=== PATIENT | female | born 1950 | race American Indian/Alaskan Native ===

== ENCOUNTER 2017-02-01 17:17 | Emergency (ER) | payer MEDICARE ==
[2017-02-01 18:41] LABS: Basophils % (Auto) 0.3 % (0.0-1.8); Eosinophils % (Auto) 0.2 % (0.0-4.3); Hematocrit 38.4 % (30.3-42.9); Hemoglobin 12.6 gm/dl (10.1-14.3); Mean Corpuscular HGB Conc 33 % (30-34); Mean Corpuscular Hemoglobin 30 pg (28-32); Mean Corpuscular Volume 90 fl (79-97); Platelet Count 184 K/mm3 (140-440); Red Blood Count 4.29 M/mm3 (3.65-5.03); Red Cell Distribution Width 14.8 % (13.2-15.2); White Blood Count 12.9 K/mm3 (4.5-11.0)
[2017-02-01 18:52] LABS: Albumin 4.3 g/dL (3.9-5); Albumin/Globulin Ratio 1.4 %; BUN/Creatinine Ratio 14.66; Bilirubin,Total 0.3 mg/dL (0.1-1.2); Chloride 102.9 mmol/L (98-107); Potassium 4.3 mmol/L (3.6-5.0); Total Protein 7.3 g/dL (6.3-8.2)
[2017-02-01] MEDS ORDERED: REGLAN IV ONE (21:05)
[2017-02-01] MEDS ORDERED: FLEXERIL PO ONE (21:06)
[2017-02-01] MEDS ORDERED: NACL 0.9% 1000 ML 1,000 ML IV ONE (21:06)
[2017-02-01] MEDS ORDERED: NACL ONE (21:25)
[2017-02-01 21:34] LABS: INR 1.01 (0.87-1.13)
[2017-02-01 22:32] LABS: Bacteria,Urine 1+ /HPF (Negative); Bilirubin,Urine NEG (Negative); Blood,Urine NEG (Negative); Ketones,Urine NEG (Negative); Leukocyte Esterase,Urine NEG (Negative); Mucus,Urine FEW /HPF; Nitrite,Urine NEG (Negative); Protein,Urine <15 mg/dL mg/dL (Negative); RBC,Urine < 1.0 /HPF (0.0-6.0); Urobilinogen,Urine < 2.0 mg/dL (<2.0)
[2017-02-01] MEDS ORDERED: ANTIVERT PO ONE (23:36)
--- NOTE | 2017-02-01 23:41 | Emergency Department Report ---
ED Dizziness HPI - General Chief Complaint: Weakness Stated Complaint: SZ Time Seen by Provider: 02/01/17 21:04 Source: patient, EMS Mode of arrival: Wheelchair Limitations: Physical Limitation - History of Present Illness Initial Comments: 66 yo female with past medical history hypertension, seizure, foot drop presents to the ED complaining of lightheadedness. [place] feeling the world was spinning. She did not have a loss of consciousness, she had no focal neuro deficits. She states on the way to the ER she developed a headache that was pounding in nature, she states headache was not the worse headache of her life and consistent with previous headaches in the past. Pertinent negatives: fever/chills, change in vision, neck stiffness, neck pain, chest pain, nausea/vomiting/diarrhea. MD Complaint: lightheadedness -: Gradual Timing: sudden onset Description: "room spinning" History of Same: No History of Trauma: No Severity: moderate Improves With: nothing Worsens With: nothing Associated Symptoms: denies: ataxia, chest pain, confusion, diaphoresis, fever/ chills, loss of appetite, seizure, shortness of breath, syncope, weakness - Related Data Previous Rx's Medication Instructions Recorded Last Taken Type Atenolol [Tenormin] 50 mg PO DAILY #30 tablet 05/16/15 Unknown Rx Docusate Sodium [Colace CAP] 100 mg PO BID #20 capsule 05/16/15 Unknown Rx Gabapentin [Neurontin] 300 mg PO Q8HR #90 capsule 05/16/15 Unknown Rx Indomethacin [Indocin] 25 mg PO BID #20 capsule 05/16/15 Unknown Rx Levothyroxine [Synthroid] 25 mcg PO QAM #30 tablet 05/16/15 Unknown Rx Oxycodone HCl [oxyCODONE TAB] 10 mg PO Q6H PRN #20 tablet 05/16/15 Unknown Rx PARoxetine [Paxil] 20 mg PO DAILY #30 tablet 05/16/15 Unknown Rx Allergies Allergy/AdvReac Type Severity Reaction Status Date / Time aspirin Allergy Nausea Verified 05/14/15 17:37 ED Review of Systems ROS: Stated complaint: SZ Other details as noted in HPI Constitutional: denies: chills, fever Eyes: denies: eye pain, eye discharge, vision change ENT: denies: ear pain, throat pain Respiratory: denies: cough, shortness of breath, wheezing Cardiovascular: denies: chest pain, palpitations Endocrine: no symptoms reported Gastrointestinal: denies: abdominal pain, nausea, diarrhea Genitourinary: denies: urgency, dysuria, discharge Musculoskeletal: denies: back pain, joint swelling, arthralgia Skin: denies: rash, lesions Neurological: headache, vertigo. denies: weakness, numbness, paresthesias, confusion, abnormal gait, other Psychiatric: denies: anxiety, depression Hematological/Lymphatic: denies: easy bleeding, easy bruising ED Past Medical Hx - Past Medical History Previous Medical History?: Yes Hx Hypertension: Yes Hx Heart Attack/AMI: Yes Additional medical history: bilateral foot drop, h/o hypoglycemia - Surgical History Past Surgical History?: Yes Additional Surgical History: hysterectomy - Social History Smoking Status: Never Smoker Substance Use Type: None - Medications Home Medications: Home Medications Medication Instructions Recorded Confirmed Last Taken Type Atenolol [Tenormin] 50 mg PO DAILY #30 tablet 05/16/15 Unknown Rx Docusate Sodium [Colace CAP] 100 mg PO BID #20 capsule 05/16/15 Unknown Rx Gabapentin [Neurontin] 300 mg PO Q8HR #90 capsule 05/16/15 Unknown Rx Indomethacin [Indocin] 25 mg PO BID #20 capsule 05/16/15 Unknown Rx Levothyroxine [Synthroid] 25 mcg PO QAM #30 tablet 05/16/15 Unknown Rx Oxycodone HCl [oxyCODONE TAB] 10 mg PO Q6H PRN #20 tablet 05/16/15 Unknown Rx PARoxetine [Paxil] 20 mg PO DAILY #30 tablet 05/16/15 Unknown Rx ED Physical Exam - General Limitations: Physical Limitation General appearance: alert, in no apparent distress - Head Head exam: Present: atraumatic, normocephalic - Eye Eye exam: Present: normal appearance - ENT ENT exam: Present: normal exam, normal orophraynx, mucous membranes dry, mucous membranes moist - Neck Neck exam: Present: normal inspection, full ROM. Absent: tenderness, meningismus, lymphadenopathy, thyromegaly, other - Respiratory Respiratory exam: Present: normal lung sounds bilaterally. Absent: respiratory distress - Cardiovascular Cardiovascular Exam: Present: regular rate, normal rhythm. Absent: systolic murmur, diastolic murmur, rubs, gallop - GI/Abdominal GI/Abdominal exam: Present: soft, normal bowel sounds - Extremities Exam Extremities exam: Present: normal inspection - Back Exam Back exam: Present: normal inspection - Neurological Exam Neurological exam: Present: alert, oriented X3, CN II-XII intact, other ( bilateral 5 out of 5 upper and lower extremity strength, intact sensation throughout the extremities, no ataxia, normal cerebellar exam ). Absent: motor sensory deficit - Psychiatric Psychiatric exam: Present: normal affect, normal mood - Skin Skin exam: Present: warm, dry, intact, normal color. Absent: rash ED Course Vital Signs 02/01/17 02/01/17 02/01/17 17:34 17:40 17:50 Temperature Pulse Rate 75 78 Respiratory 16 34 H Rate Blood Pressure 127/54 113/51 Blood Pressure [Left] O2 Sat by Pulse 97 96 97 Oximetry 02/01/17 02/01/17 02/01/17 17:51 18:00 18:10 Temperature 97.9 F Pulse Rate 68 69 Respiratory 43 H 19 Rate Blood Pressure 118/47 118/47 Blood Pressure [Left] O2 Sat by Pulse 94 96 Oximetry 02/01/17 02/01/17 02/01/17 18:20 18:30 18:35 Temperature Pulse Rate 74 71 Respiratory 26 H 29 H 18 Rate Blood Pressure 112/52 112/52 Blood Pressure [Left] O2 Sat by Pulse 94 95 99 Oximetry 02/01/17 02/01/17 02/01/17 18:40 18:50 19:00 Temperature Pulse Rate 71 75 68 Respiratory 26 H 23 25 H Rate Blood Pressure 118/67 118/67 106/64 Blood Pressure [Left] O2 Sat by Pulse 93 93 91 Oximetry 02/01/17 02/01/17 02/01/17 19:10 19:45 22:14 Temperature Pulse Rate 73 72 67 Respiratory 24 14 14 Rate Blood Pressure 106/64 Blood Pressure 112/63 106/50 [Left] O2 Sat by Pulse 95 99 99 Oximetry 02/02/17 02:31 Temperature Pulse Rate 59 L Respiratory 12 Rate Blood Pressure Blood Pressure 97/58 [Left] O2 Sat by Pulse 99 Oximetry - Reevaluation(s) Reevaluation #1: 02/01/17 23:40 Patient resting comfortably, she states she has no symptoms. Reevaluation #2: 02/02/17 01:59 Patient resting comfortably ED Medical Decision Making - Lab Data Result diagrams: 02/01/17 18:17 02/01/17 18:17 - EKG Data -: EKG Interpreted by Me EKG shows normal: sinus rhythm (75), axis (upright ), intervals (QTC 439 ) Rate: normal - EKG Data Interpretation: no acute changes, normal EKG - Radiology Data CT head final impression: No acute focal abnormalities identified. Paranasal sinuses are only partially visualized. The portion seen showed no abnormalities. Dr Erica CLANCY CTA Head: Final impression: There is no intracranial aneurysm. There is no vascular phonation. The dural sinuses are patent. Dr Valeria CLANCY - Medical Decision Making 66 yo female with past medical history hypertension, seizure presenting to ED with fatigue and headache 1) Fatigue Symptoms have currently resolved. Patient states she was outdoors with her family thought she had decreased energy. likely secondary to mild dehydration, I have encouraged po intake and have given pt a copy of labs and images for pcp follow up and comparison she is aware her creatinine is 1.5 today. NIH stroke scale was 0, I have low suspicion for CVA. I considered : PNA, UTI however work up was negative She states her symptoms have improved, her energy has increased and is back to normal, she is ready to discharge home. 2) Headache unsure of cause however I have low supicion for SAH given her CT head was negative after being taken less than 6 hours after symptoms onset and CTA negative for aneurysm. She has no neuro deficits, no neck stiffness, no change in vision, no nausea. Pt states her headache has resolved and she is stable to dc home. PE neuro exam prior to discharge patient has gait steady and which she uses a cane at baseline, cranial nerves II-12 intact, intact sensation throughout her extremities, intact strength throughout her upper or lower extremities. Patient verbalizes understanding of return precautions, patient states she is ready discharged home. Critical care attestation.: If time is entered above; I have spent that time in minutes in the direct care of this critically ill patient, excluding procedure time. ED Disposition Clinical Impression: Fatigue, Headache, Dehydration Disposition: DC-01 TO HOME OR SELFCARE Is pt being admited?: No Does the pt Need Aspirin: No Condition: Stable Instructions: Weakness (ED), Fatigue (ED) Referrals: PRIMARY MD DOC [Primary Care Provider] - 2-3 Days NUHA ROCHE MD [Staff Physician] - 2-3 Days Forms: Work/School Release Form(ED)
[2017-02-02] MEDS ORDERED: NACL ONE (00:05)
--- NOTE | 2017-02-02 00:59 | Cat Scan Report ---
FINAL REPORT PROCEDURE: CT HEAD/BRAIN WO CON TECHNIQUE: Computerized tomography of the head was performed without contrast material. HISTORY: headache COMPARISON: No prior studies are available for comparison. FINDINGS: Brain: Brain density appears normal. No evidence of intracranial hemorrhage. No parenchymal hemorrhage, mass lesions or mass effect are seen. No abnormal extraxial fluid collects or masses are seen. There is nonspecific mineralization of the basal ganglia bilaterally. Ventricles: Ventricles are normal size and are midline. Bone Windows: No evidence of skull fracture. Paranasal sinuses: Visualized portions appear clear. Maxillary sinuses are not included on this exam. Mastoid air cells: Clear IMPRESSION: No acute or focal abnormalities are identified. Paranasal sinuses are only partially visualized. The portions seen showed no abnormalities.
--- NOTE | 2017-02-02 02:23 | Cat Scan Report ---
FINAL REPORT PROCEDURE: CT ANGIO HEAD TECHNIQUE: Computerized tomographic angiography of the head was performed after the IV injection of iodinated nonionic contrast including image processing. The image data was postprocessed using 2-dimensional multiplanar reformatted (MPR) and 3-dimensional (MIP and/or volume rendered) techniques. HISTORY: please evaluate for aneurysm H/A COMPARISON: 02/01/2017 FINDINGS: Cerebrum: No evidence of hemorrhage, acute ischemia or mass. Cerebellum: No evidence of hemorrhage, acute ischemia or mass. Subarachnoid spaces and ventricles: Normal. Intracranial vessels: Carotid siphon: Normal. Anterior cerebral: Normal. Middle cerebral: Normal. Posterior cerebral:Normal. Vertebral arteries including basilar: Normal. Aneurysms: None. Dural sinuses: Normal. IMPRESSION: There is no intracranial aneurysm. There is no vascular malformation. The dural sinuses are patent.
[2017-02-02 02:34] VITALS: BP 97/58
--- NOTE | 2017-02-02 07:45 | XRay Report ---
AP CHEST: HISTORY: Cough There is poor inspiration. There is a subtle opacity in the lingula most consistent with segmental atelectasis. Otherwise, the lungs are clear. Heart size and pulmonary vascularity are grossly normal given this level of inspiration. Normal bony structures. IMPRESSION: No acute cardiopulmonary process identified.
== END 2017-02-02 02:54 | disposition home or self-care (01) ==
LOC: ED 17:17
DX: E86.0 Dehydration (principal); R51 Headache; R42 Dizziness and giddiness; I10 Essential (primary) hypertension; I25.2 Old myocardial infarction
CPT/HCPCS: 36415; 70450; 70496; 71010; 80053; 81001; 84484; 85025; 85610; 93005; 93010; 96361; 96374; 99285; J2765; J7030; Q9967